=== PATIENT | male | born 1960 | race Asian ===

== ENCOUNTER 2019-10-30 16:01 | Emergency (ER) | payer OTHER ==
[~2019-10-30] VITALS: Ht 170.2 cm; Wt 74.2 kg
[2019-10-30 16:14] VITALS: BP 153/103
--- NOTE | 2019-10-30 17:04 | NUR ---
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
== END 2019-10-30 18:23 ==
LOC: ED 18:17
DX: S82.62XA Displaced fracture of lateral malleolus of left fibula, initial encounter for closed fracture (principal); W01.0XXA Fall on same level from slipping, tripping and stumbling without subsequent striking against object, initial encounter; Y93.89 Activity, other specified; Y92.098 Other place in other non-institutional residence as the place of occurrence of the external cause; Y99.8 Other external cause status
CPT/HCPCS: 29515; 99284